=== PATIENT | female | born 1970 | race Caucasian/White ===

== ENCOUNTER 2023-10-03 09:22 | Emergency (ER) | payer BC ==
[2023-10-03 09:51] VITALS: BP 135/83; PULSE 72; RESP 16; TEMP 97.7; BMI 26.4
[2023-10-03] MEDS ORDERED: FAMOTIDINE 20 MG/50 ML IVPB 20 MG/50 ML MG IVPB ONE (10:06)
[2023-10-03] MEDS ORDERED: MAG HYDROX/AL HYDROX/SIMETH 30 ML UNIT-DOSE CUP ONE (10:06)
[2023-10-03] MEDS: MAG HYDROX/AL HYDROX/SIMETH 30 ML UNIT-DOSE CUP PO ONE (10:10)
[2023-10-03] MEDS: FAMOTIDINE 20 MG/50 ML IVPB 20 MG/50 ML MG IVPB ONE (10:15)
[2023-10-03] MEDS: SODIUM CHLORIDE 0.9% 500 ML INFUS.BAG IV ONE (10:20)
[2023-10-03 10:46] LABS: HEMATOCRIT 43.9 % (32.4-45.2); HEMOGLOBIN 15.2 G/dL (10.7-15.3); MCH 30.2 pg (25.7-33.7); MCHC 34.7 g/dl (32.0-36.0); MEAN CELL VOLUME 87.1 fl (80-96); MEAN PLT VOLUME 7.9 fl (7.5-11.1); PLATELET COUNT 296.7 10^3/uL (134-434); RBC 5.04 10^6/uL (3.60-5.2); RDW 13.1 % (11.6-15.6); WHITE BLOOD COUNT 10.3 10^3/uL (4.0-10.8)
[2023-10-03 10:56] LABS: ALBUMIN 4.6 g/dl (3.4-5.0); ALK PHOS 43 U/L (45-117); ANION GAP 7 mmol/L (4-13); BILIRUBIN,TOTAL 0.6 mg/dl (0.2-1); CHLORIDE 104 mmol/L (98-107); CO2 30 mmol/L (21-32); GLUCOSE,RANDOM 127 mg/dl (74-106); POTASSIUM 3.8 mmol/L (3.5-5.1); SGOT/AST 12 U/L (15-37); SGPT/ALT 10 U/L (7-52); SODIUM 141 mmol/L (136-145); TOT PROT 7.2 g/dl (6.4-8.2)
[2023-10-03 11:07] LABS: PLATELET ESTIMATE ADEQUATE
== END 2023-10-03 12:18 | disposition home or self-care (01) ==
LOC: FER 09:22
PROC: 3E033GC Introduction of Other Therapeutic Substance into Peripheral Vein, Percutaneous Approach (ICD-10-PCS; principal; 2023-10-03)
DX: R10.13 Epigastric pain (principal); K29.70 Gastritis, unspecified, without bleeding; Z20.822 Contact with and (suspected) exposure to COVID-19
CPT/HCPCS: 0241U-QW; 36415; 71045-TC-FY; 76705-TC; 80053; 81003; 81015; 83690; 84484; 85027; 93005; 99285-25